=== PATIENT | male | born 2000 | race Caucasian/White ===

== ENCOUNTER 2020-02-07 18:35 | Emergency (ER) | payer BC, OTHER ==
[~2020-02-07] VITALS: Ht 180 cm; Wt 127.0 kg
[2020-02-07 19:15] VITALS: BP 148/96
[2020-02-07] MEDS ORDERED: HYDR50CA3 PO (19:36)
--- NOTE | 2020-02-07 19:36 | ED General ---
General Chief Complaint: Psych/Social Disorder Stated Complaint: ANXIETY Source of Information: Patient History of Present Illness Date Seen by Provider: Feb 07, 2020 Time Seen by Provider: 19:20 Initial Comments PT ARRIVES VIA POV FROM HOME--LIVES AT HOME WITH DAD PT STATES THAT HE THINKS HE IS HAVING ANXIETY PROBLEMS THIS IS AN ONGOING PROBLEM FOR OVER 6 MONTHS BUT LESS THAN A YEAR SYMPTOMS NO DIFFERENT TONIGHT HAS NOT SOUGHT CARE UNTIL TONIGHT STATES "SOMETIMES MY LEFT PINKY WILL GET TINGLY AND GO A LITTLE NUMB AND I GUESS I FREAK OUT ABOUT IT AND MY HEART RATE STARTS GOING UP AND THEN I BREAK OUT IN A SWEAT" STATES THIS LASTS FOR 5-10 MINUTES AND THEN IT GOES AWAY STATES IT ONLY HAPPENS TO HIS LEFT PINKY FINGER, AND USUALLY HAPPENS AT NIGHT WHEN HE IS TRYING TO GO TO BED. HAS BEEN HAPPENING FOR THE LAST COUPLE OF WEEKS WITH HIS PINKY HAVING NUMBNESS AND TINGLING CLAIMS THAT IT IS NOT WITH ANY CERTAIN POSITION STATES NORMALLY THE NUMBNESS AND TINGLING COMES ON GRADUALLY, BUT TONIGHT HE "HIT HIS PINKY ON A PLASTIC CUP HANDLE WHILE SCOOPING UP CAT FOOD, AND IT IMMEDIATELY TINGLED INSTEAD OF IT GRADUALLY STARTING TO TINGLE AND IT FREAKED ME OUT" STATES HE IS FEELING FINE NOW, AND HIS PINKY FEELS FINE NO NECK PAIN NO ARM OR WRIST OR HAND PAIN OR PARESTHESIAS NO HEADACHE NO FEVER OR RECENT ILLNESS NO INJURY OR UNUSUAL ACTIVITY DOES NOT GO TO SCHOOL AND DOES NOT WORK PCP: DR. BOLIVAR Allergies and Home Medications Home Medications Hydroxyzine Pamoate 50 Mg Capsule, 50 MG PO Q6H PRN for ANXIETY Prescribed by: ROBERT BENITEZ on 02/07/201935 Patient Home Medication List Home Medication List Reviewed: Yes Review of Systems Review of Systems Constitutional: no symptoms reported EENTM: no symptoms reported Respiratory: no symptoms reported Cardiovascular: see HPI Gastrointestinal: no symptoms reported Genitourinary: no symptoms reported Musculoskeletal: see HPI Skin: no symptoms reported Psychiatric/Neurological: See HPI Past Isgzwvi-Vsgfgo-Iggske Hx Past Med/Social Hx: Reviewed and Corrections made Patient Social History Alcohol Use: Denies Use Recreational Drug Use: No Smoking Status: Never a Smoker Recent Foreign Travel: No Contact w/Someone Who Travel: No Recent Hopitalizations: No Physical Abuse: No Sexual Abuse: No Mistreated: No Fear: No Seasonal Allergies Seasonal Allergies: No Past Medical History Surgeries: No Respiratory: No Cardiac: No Neurological: No Genitourinary: No Gastrointestinal: Yes (SELF-DX OF GGERD) Gastroesophageal Reflux Musculoskeletal: No Endocrine: No HEENT: No Cancer: No Psychosocial: No Integumentary: No Blood Disorders: No Physical Exam Vital Signs Vital Signs - First Documented 02/07/20 19:15 Temp 37.0 Pulse 99 Resp 16 B/P (MAP) 148/96 (113) O2 Delivery Room Air Capillary Refill : Height, Weight, BMI Height: '" Weight: lbs. oz. kg; BMI Method: General Appearance: No Apparent Distress, WD/WN Neck: Normal Inspection Respiratory: Normal Breath Sounds, No Accessory Muscle Use, No Respiratory Distress Cardiovascular: Regular Rate, Rhythm, No Edema, No JVD, No Murmur, Normal Peripheral Pulses Back: Normal Inspection Extremity: Normal Capillary Refill, Normal Inspection, Normal Range of Motion, Non Tender, No Calf Tenderness, No Pedal Edema Neurologic/Psychiatric: Alert, Oriented x3, No Motor/Sensory Deficits, Normal Mood/Affect, fruit rancher II-XII Norm as Tested Skin: Normal Color, Warm/Dry; No Ecchymosis; Other (NO EXTERNAL EVIDENCE OF TRAUMA) Progress/Results/Core Measures Suspected Sepsis SIRS Temperature: Pulse: Respiratory Rate: Blood Pressure / Mean: Results/Orders Vital Signs/I&O 02/07/20 19:15 Temp 37.0 Pulse 99 Resp 16 B/P (MAP) 148/96 (113) O2 Delivery Room Air Capillary Refill : Departure Impression Primary Impression: Anxiety Additional Impression: TRANSIENT PARESTHESIAS OF LEFT 5TH FINGER Disposition: 01 HOME, SELF-CARE Condition: Stable Departure-Patient Inst. Referrals: KACI BOLIVAR MD (PCP/Family) Primary Care Physician Patient Instructions: Anxiety, Adult (DC) Add. Discharge Instructions: HOME, REST FOLLOW UP WITH DR. BOLIVAR THIS WEEK FOR FURTHER CARE All discharge instructions reviewed with patient and/or family. Voiced understanding. Scripts Hydroxyzine Pamoate (Hydroxyzine Pamoate) 50 Mg Capsule 50 MG PO Q6H PRN for ANXIETY, #15 CAP Prov: ROBERT BENITEZ DO 02/07/20 ROBERT BENITEZ DO Feb 07, 2020 19:36
--- OUTSIDE RECORDS SUMMARY | 2020-02-07 20:29 | XMS REPORT | Continuity of Care Document ---
Author Organization Unknown Address Unknown Phone Unavailable Allergies Active Description Code Type Severity Reaction Onset Reported/Identified Relationship to Patient Clinical Status Yes NO KNOWN DRUG ALLERGIES UNKNOWN NO KNOWN DRUG ALLERG Yes NO KNOWN DRUG ALLERGIES UNKNOWN UNKNOWN Medications Medication Packaging Start Date St op Date Route Dosage Sig GI COCKTAIL SINGLE DOSE LIQ (GRASSHOPPER) ML 02/10/2019 02/10/2019 ONCE&1328 Problems Date Dx Coded Attending Type Code Diagnosis Diagnosed By 11/22/2011 278.00 OBESITY 11/22/2011 784.0 HEADACHE 11/22/2011 V65.3 COUN SELING- OBESITY (DIET) 11/22/2011 V77.1 DIAB ETES SCREENING 11/22/2011 V78.0 ANEM IA SCREENING 12/06/2011 V72.62 LAB SCREENING- GENERAL PHYSICAL 12/11/2011 272.1 HYPERTRIGLYCERIDEMIA 08/04/2012 788.1 DYSURIA 08/04/2012 788.41 URI NARY FREQUENCY 05/03/2018 Brown, Sudhakar W 789.00 ABDOMINAL PAIN, UNSPECIFIED SITE 05/03/2018 Brown, Sudhakar W R10.30 LOWER ABDOMINAL PAIN, UNSPECIFIED 05/03/2018 Brown, Sudhakar W 789.00 ABDOMINAL PAIN, UNSPECIFIED SITE 05/03/2018 Brown, Sudhakar W R10.30 LOWER ABDOMINAL PAIN, UNSPECIFIED 05/03/2018 W 789.00 ABD OMINAL PAIN, UNSPECIFIED SITE 05/03/2018 W R10.30 LOW ER ABDOMINAL PAIN, UNSPECIFIED 06/03/2018 KACI BOLIVAR W 789.00 ABDOMINAL PAIN, UNSPECIFIED SITE 06/03/2018 KACI BOLIVAR W R10.9 UNSPECIFIED ABDOMINAL PAIN 06/03/2018 KACI OBLIVAR W 789.00 ABDOMINAL PAIN, UNSPECIFIED SITE 06/03/2018 KACI BOLIVAR W R10.9 UNSPECIFIED ABDOMINAL PAIN 06/03/2018 W 530.81 ESO PHAGEAL REFLUX 06/03/2018 W 789.00 ABD OMINAL PAIN, UNSPECIFIED SITE 06/03/2018 A 789.04 ABD OMINAL PAIN, LEFT LOWER QUADRANT 06/03/2018 W K21.9 SHAWN RO-ESOPHAGEAL REFLUX DISEASE WITHOUT ESOPHAGITIS 06/03/2018 A R10.32 LEF T LOWER QUADRANT PAIN 06/03/2018 W R10.9 UNSP ECIFIED ABDOMINAL PAIN 06/03/2018 OSMEL, KACI W 789.00 ABDOMINAL PAIN, UNSPECIFIED SITE 06/03/2018 BOLIVAR, KACI W R10.9 UNSPECIFIED ABDOMINAL PAIN 06/05/2018 BOLIVAR, KACI W 789.00 ABDOMINAL PAIN, UNSPECIFIED SITE 06/05/2018 BOLIVAR, KACI W R10.9 UNSPECIFIED ABDOMINAL PAIN 06/05/2018 BOLIVAR, KACI W 789.00 ABDOMINAL PAIN, UNSPECIFIED SITE 06/05/2018 OSMEL, KACI W R10.9 UNSPECIFIED ABDOMINAL PAIN 10/16/2018 LEISURE, ROBERT W 300.00 ANXIETY STATE, UNSPECIFIED 10/16/2018 LEISURE, ALEXISA W 530.5 DYSKINESIA OF ESOPHAGUS 10/16/2018 LEISURE, ALEXISA W 786.05 SHORTNESS OF BREATH 10/16/2018 LEISURE, LYNIETA W 796.2 ELEVATED BLOOD PRESSURE READING WITHOUT DIAGNOSIS OF HYPERTENSION 10/16/2018 LEISURE, ALEXISA W F41.9 ANXIETY DISORDER, UNSPECIFIED 10/16/2018 LEISURE, ALEXISA W K22.4 DYSKINESIA OF ESOPHAGUS 10/16/2018 LEISURE, ALEXISA W R03.0 ELEVATED BLOOD-PRESSURE READING, W/O DIAGNOSIS OF HTN 10/16/2018 LEISURE, ALEXISA W R06.02 SHORTNESS OF BREATH 11/24/2018 W 785.1 PALP ITATIONS 11/24/2018 W R00.2 PALP ITATIONS 02/10/2019 WILMAR KWON APRN W 530 .81 ESOPHAGEAL REFLUX 02/10/2019 WILMAR KWON APRN W K21 .9 GASTRO-ESOPHAGEAL REFLUX DISEASE WITHOUT ESOPHAGITIS Procedures Code Description [place] [address] UA W / CULTURE IF INDICATED 08/04/2012 Results Test Result Range Urine Culture - 05/03/18 11:39 PRELIM CULTURE RESULTS No Growth 24 hours FINAL CULTURE RESULTS No Growth 48 hours CULTURE SOURCE urine Comprehensive Metabolic Panel - 06/03/18 09:15 Albumin 4.9 g/dL 3.6-5.1 ALP 82 U/L 35-130 ALT 20 U/L 6-45 Anion Gap 16 6-14 AST 20 U/L 2-40 BUN 14 mg/dL 5-25 Calcium 9.5 mg/dL 8.3-10.4 Chloride 103 mmol/L 95-114 CO2 24 mEq/L 22-33 Creat 1.01 mg/dL 0.50-1.50 eGFR 94 mL/min/1.73m2 >59 Globulin 3.3 g/dL 2.3-3.5 Glucose 98 mg/dL 70-110 Osmo 288 280-295 Potassium 3.9 mmol/L 3.5-5.3 Sodium 139 mmol/L 134-148 TBil 0.8 mg/dL 0.2-1.2 TP 8.2 g/dL 6.0-8.3 Troponin I - 10/15/18 23:14 Troponin <0.020 ng/mL 0.0-0.4 Myoglobin - 10/15/18 23:14 Myoglobin 16.6 ng/ml 1.6-154.9 Thyroid Stimulating Hormone - 10/15/18 2 3:14 TSH 2.04 mIU/mL 0.32-5.00 Holter Monitor 48 hour - 11/24/18 17:45 Holter Monitor 48 Hour Complete Cardiac Panel - 02/10/19 13:28 CK 35 U/L 26-174 CK-MB 0.4 ng/ml 0.0-9.2 Myoglobin 17.3 ng/ml 1.6-154.9 Troponin <0.020 ng/mL 0.0-0.4 Encounters ACCT No. Visit Date/Time Discharge Status Pt. Type Provider Facility Loc./Unit Complaint [id number] 02/10/2019 13:21:00 02/10/2019 14:29: 00 DIS Outpatient WILMAR KWON APRN [facility] ER [id number] 11/24/2018 17:34:00 11/24/2018 23:59: 00 DIS Outpatient KACI BOLIVAR [id number] 10/15/2018 23:04:00 10/16/2018 00:25: 00 DIS Outpatient ROBERT SHEIKH [facility] ER [id number] 06/05/2018 10:47:00 06/05/2018 23:59: 00 DIS Outpatient KACI BOLIVAR [id number] 06/03/2018 12:29:00 06/03/2018 23:59: 00 DIS Outpatient BOLIVAR, KACI [id number] 05/03/2018 11:38:00 05/03/2018 23:59: 00 DIS Outpatient Sudhakar Louis [id number] 02/10/2019 13:31:22 Document Registration [id number] 11/24/2018 14:55:00 Document Registration [id number] 06/03/2018 09:20:00 Document Registration [id number] 05/03/2018 10:46:00 Document Registration [id number] 02/07/2020 18:36:00 020 19:42:00 DIS Emergency [place] ROBERT SHINE [facility] ER ANXIETY [id number] 08/04/2012 10:11:00 08/04/2012 23:59: 59 CLS Outpatient [id number] 10/15/2018 23:04:00 Document Registration
--- OUTSIDE RECORDS SUMMARY | 2020-02-07 20:29 | XMS REPORT ---
Author Author Prashant Moore Doctor Organization [facility] Address Unknown Phone Unavailable Care Team Providers Care Embedded Systems Engineer Name Role Phone Migration, Doctor Unavailable Unavailable PROBLEMS Type Condition ICD9-CM Code [id number] Code Onset Dates Condition S tatus SNOMED Code Problem Screening for iron deficiency anemia V78.0 Active 142635792 Problem Screening for diabetes mellitus V77.1 Active 527980647 Problem Obesity, unspecified 278.00 Active 568934521 Problem Pure hyperglyceridemia 272.1 Active 680475895 Problem Dietary surveillance and counseling V65.3 Active 872682175 Problem Urinary frequency 788.41 Active 16 3265902 Problem Dysuria 788.1 Active 29780959 Problem Headache 784.0 Active [id number] ALLERGIES No Information ENCOUNTERS Encounter Location Date Diagnosis [facility] [address] [facility] [id number] [address] [place] [phone] Oct, [facility] [address] [facility] [id number] [address] [place] [phone] Jul, [facility] [address] [facility] [id number] [address] [place] [phone] Dec, [facility] [address] [facility] [id number] [address] [place] [phone] Dec, [facility] [address] [facility] [id number] [address] [place] [phone] Dec, [facility] [address] [facility] [id number] [address] [place] [phone] November, [facility] [address] [facility] [id number] [address] [place] [phone] November, IMMUNIZATIONS No Known Immunizations SOCIAL HISTORY Never Assessed REASON FOR VISIT EMR-[facility] PLAN OF CARE VITAL SIGNS MEDICATIONS Unknown Medications RESULTS No Results PROCEDURES No Known procedures INSTRUCTIONS MEDICATIONS ADMINISTERED No Known Medications
--- OUTSIDE RECORDS SUMMARY | 2020-02-07 20:29 | XMS REPORT ---
Author Author Prashant Álvarez [facility] Address [address] [place] [address] Care Team Providers Care Linotype Operator Name Role Phone ROBERT Álvarez Unavailable PROBLEMS Type Condition ICD9-CM Code [id number] Code Onset Dates Condition S tatus SNOMED Code Problem Screening for iron deficiency anemia V78.0 Active 960605463 Problem Screening for diabetes mellitus V77.1 Active 469146006 Problem Obesity, unspecified 278.00 Active 857820022 Problem Pure hyperglyceridemia 272.1 Active 634898937 Problem Dietary surveillance and counseling V65.3 Active 276135995 Problem Urinary frequency 788.41 Active 16 2112070 Problem Dysuria 788.1 Active 96320559 Problem Headache 784.0 Active [id number] ALLERGIES No Information ENCOUNTERS Encounter Location Date Diagnosis [facility] [address] [facility] [id number] [address] [place] [phone] Oct, [facility] [address] [facility] [id number] [address] [place] [phone] Jul, [facility] [address] [facility] [id number] [address] [place] [phone] Dec, [facility] [address] [facility] [id number] [address] [place] [phone] Dec, [facility] [address] [facility] [id number] [address] [place] [phone] Dec, [facility] [address] [facility] [id number] [address] [place] [phone] November, [facility] [address] [facility] [id number] [address] [place] [phone] November, IMMUNIZATIONS No Known Immunizations SOCIAL HISTORY Never Assessed REASON FOR VISIT PLAN OF CARE VITAL SIGNS MEDICATIONS Unknown Medications RESULTS No Results PROCEDURES No Known procedures INSTRUCTIONS MEDICATIONS ADMINISTERED No Known Medications
== END 2020-02-07 19:42 | disposition home or self-care (01) ==
LOC: EDUNIT# 18:35 → ER 18:36
DX: F41.9 Anxiety disorder, unspecified (principal); R20.2 Paresthesia of skin
CPT/HCPCS: 99281